=== PATIENT | female | born 1970 | race Two or more races ===

== ENCOUNTER 2019-05-11 16:15 | Outpatient (CLI) | payer OTHER ==
[~2019-05-11] VITALS: Ht 177.8 cm; Wt 67.1 kg
== END 2019-05-11 17:17 | disposition home or self-care (01) ==
LOC: OFIC 805 16:15
DX: H93.13 Tinnitus, bilateral (principal); H73.891 Other specified disorders of tympanic membrane, right ear; H69.83 Other specified disorders of Eustachian tube, bilateral

== ENCOUNTER 2019-07-06 08:01 | Outpatient (CLI) | payer OTHER ==
[2019-07-06] MEDS ORDERED: SINGULAIR 10MG10 MG PO (14:44)
[2019-07-06] MEDS ORDERED: AZELASTINE137 MCG/0. NASAL (14:44)
== END 2019-07-06 15:30 | disposition home or self-care (01) ==
LOC: OFIC 805 08:01
DX: H69.90 Unspecified Eustachian tube disorder, unspecified ear (principal); H93.13 Tinnitus, bilateral; H93.8X3 Other specified disorders of ear, bilateral; J30.89 Other allergic rhinitis; R09.81 Nasal congestion

== ENCOUNTER 2019-08-01 08:46 | Outpatient (CLI) | payer OTHER ==
[~2019-08-01 08:46] MED LIST: AZELASTINE137 MCG/0. NASAL; SINGULAIR 10MG10 MG PO
== END 2019-08-01 13:45 | disposition home or self-care (01) ==
LOC: OFIC 805 08:46
PROVIDERS: ATTEND Otolaryngology
DX: H68.023 Chronic Eustachian salpingitis, bilateral (principal); H66.93 Otitis media, unspecified, bilateral; H93.13 Tinnitus, bilateral; J30.89 Other allergic rhinitis

== ENCOUNTER 2019-08-31 09:27 | Outpatient (CLI) | payer OTHER | END 2019-08-31 11:30 | disposition home or self-care (01) | LOC: OFIC 805 09:27 | PROVIDERS: ATTEND Otolaryngology | DX: Q17.8 Other specified congenital malformations of ear (principal); J30.89 Other allergic rhinitis; H93.13 Tinnitus, bilateral; H93.8X3 Other specified disorders of ear, bilateral; H90.42 Sensorineural hearing loss, unilateral, left ear, with unrestricted hearing on the contralateral side ==

== ENCOUNTER → 2019-09-07 | Outpatient (CLI) | payer OTHER | END | disposition home or self-care (01) | LOC: OFIC 805 09:02 | PROVIDERS: ATTEND Otolaryngology | DX: J30.89 Other allergic rhinitis (principal); H90.42 Sensorineural hearing loss, unilateral, left ear, with unrestricted hearing on the contralateral side; R09.81 Nasal congestion; Q17.8 Other specified congenital malformations of ear; H74.8X3 Other specified disorders of middle ear and mastoid, bilateral ==

== ENCOUNTER 2019-10-23 05:45 | Day surgery (SDC) | payer OTHER | END 2019-10-23 18:15 | disposition home or self-care (01) | LOC: CIR.AMB 05:45 | PROVIDERS: ATTEND Otolaryngology | DX: D10.1 Benign neoplasm of tongue (principal); Z20.828 Contact with and (suspected) exposure to other viral communicable diseases ==

== ENCOUNTER → 2020-02-20 | Outpatient (CLI) | payer OTHER | END | disposition home or self-care (01) | LOC: MRI 07:15 | DX: R19.09 Other intra-abdominal and pelvic swelling, mass and lump (principal); N83.299 Other ovarian cyst, unspecified side | CPT/HCPCS: 72196 ==